=== PATIENT | male | born 1980 | race Caucasian/White ===

== ENCOUNTER 2019-08-19 09:45 | Day surgery (SDC) | payer OTHER ==
[~2019-08-19 09:45] MED LIST: ACETAMINOPHEN 325 MG TABLET PO PRN; CLINDAMYCIN 600 MG/D5W RTU 600 MG/50 ML RTUPB IV PRN; RINGERS SOLUTION,LACTATED 1,000 ML IV PRN
[2019-08-19] MEDS ORDERED: CLINDAMYCIN 600 MG/D5W RTU 600 MG/50 ML RTUPB IV ONE (10:39)
[2019-08-19] MEDS ORDERED: PROPOFOL INJ 200 MG/20 ML VIAL IV ONE (11:18)
[2019-08-19] MEDS ORDERED: MIDAZOLAM 2 MG/2 ML INJ ONE (11:18)
[2019-08-19] MEDS ORDERED: FENTANYL CITRATE INJ/PF 100 MCG/2 ML AMPUL ONE (11:18)
[2019-08-19] MEDS ORDERED: BUPIVACAINE HCL 0.25 % INJ/PF (2.5 MG/1 ML) 30 ML VIAL ONE (11:22)
[2019-08-19] MEDS ORDERED: BUPIVACAINE INJ/PF LIPOSOME/PF 266 MG/20 ML SDV ONE (11:22)
--- NOTE | 2019-08-19 12:28 | Operative Report ---
Operative Report DATE OF SURGERY: 08/19/19 PREOPERATIVE DIAGNOSIS: Umbilical hernia POSTOPERATIVE DIAGNOSIS: Same OPERATION: Primary umbilical herniorrhaphy, open SURGEON: JA SCHWAB [employer] SENIOR OFFICER: NILSA COREAS ANESTHESIA: GA TISSUE REMOVED OR ALTERED: None COMPLICATIONS: none ESTIMATED BLOOD LOSS: scant INTRAOPERATIVE FINDINGS: see below PROCEDURE: Patient was seen in preop holding area, then taken to the main operating room general anesthesia was induced. The abdominal wall was prepped and draped in sterile fashion. Surgical plan surgical timeout were conducted. The larissa wall skin above the umbilicus was anesthetized with quarter percent Marcaine. A curvilinear incision was made above the umbilicus, and the umbilical skin inferiorly was dissected off of the hernia sac. The hernia sac consisted of a very thin film finding of retroperitoneal fat. The hernia and its contents were dissected free of the subcutaneous tissue, taken down to the fascial defect. The fascial defect was approximately 1 to 1/2 cm in diameter. We felt that primary closure without mesh would be appropriate. The prolapsing retroperitoneal fat was reduced into the retroperitoneal space carefully. We now closed the fascial defect transversely with 2 [id number] 0 Ethibond sutures, securing the knots with out tension. The umbilicus was reconstructed with 2-0 and 3-0 Vicryl benzoin, Steri-Strips and bulky dressing. Patient tolerated procedure well, extubated, and taken recovery room in stable condition. The physician care team assistant, Ms. Hernadez, provided assistance with retracting tissue, instillation of local anesthesia and closure of skin incisions.
[2019-08-19] MEDS ORDERED: OXYCODONE-ACETAMINOPHEN 5-325 MG TABLET PO PRN (12:29)
--- NOTE | 2019-08-19 12:29 | Discharge Summary ---
Discharge Summary (SDC) - Discharge Final Diagnosis: umbilical hernia Date of Surgery: 08/19/19 Discharge Date: 08/19/19 Condition: Good Treatment or Instructions: [facility] [address], [place] [address] Discharge Instructions: Open Abdominal Procedures (Hernia, Bowel Surgery) 1.General Information: a. DO NOT DRIVE a car or operative machinery for 1-2 weeks or as long as taking Narcotic pain medication. b. DO NOT consume alcohol, tranquilizers, sleeping medication, or any non- prescribed medication for 24 hours unless approved by your doctor or as long as taking pain medication. c. DO NOT make important decisions or sign any important papers for the first 24 hours after surgery. d. When discharged home the same day as surgery have a responsible person with you the first night. 2.Activity Restriction: 6 weeks a. Avoid heavy lifting (> 10-15 lbs), straining abdominal muscles and sports, mowing lawn, vacuum acid tank cleaner and bending over a lot. b. Walking is important to avoid blood clots in the legs and deep breathing can prevent pneumonia. c. If it fine to go for walks, up and down steps, and ride in a car. 3.Treatment: a. You may shower 48 hours after surgery and shower then daily is fine, but you should not bathe in a tub or go swimming for 2 weeks. b. If you have paper strips (steri strips) on the skin, do not remove them as they will fall off in the coming weeks. Pat them dry after your shower. Sutures beneath the paper strips dissolve. c. Do not use oils, powders, or lotion on your incision. 4.Medications: a. You may take prescription tablets for pain if needed, one every 6 hours (_Toradol_). b. Do not take additional NSAIDs with Toradol. You may take Tyelnol as needed. c. You may resume all normal medications unless a change is specified by your doctors. 5.Diet: a. If going home the same day as surgery start with clear liquids, and if you do well then advance to normal foods low inf fat and protein. Smaller portion size may be escamilla the first night. b. When discharged after hospital stay you may resume a normal diet. 6.Notify Physician If: a. Pain is not relieved by pain medication b. Persistent nausea and vomiting c. Chills, fever (above 101) d. Persistent bleeding or swelling at the operative site e. Unable to urinate for 6-8 hours f. Increased redness, drainage, or foul smelling discharge from incision 7. Follow Up Care: a. Please call our office to schedule an appointment with your doctor for 2 weeks. In the event of any postoperative problems or questions you may call our office during business hours or the On-Call surgeon through the lamination operator at [facility]. [facility] [phone] [facility] [phone] (Ask for the surgeon guest relations receptionist) b. I understand the instructions for my postoperative care as described above and a copy has been given to me. Witness Patient/Significant Other Date Prescriptions: Ketorolac Tromethamine [Toradol 10 mg Tablet] 10 mg PO Q6HP PRN #20 tablet PRN Reason: Referrals: LARRY BECK MD [Primary Care Provider] - Discharge Diet: As Tolerated Discharge Activity: Balance Activity w/Rest, No Lifting Over 10 Pounds, No Lifting/Push/Pulling, Walk Frequently Report the Following to Your Physician Immediately: Nausea, Vomiting, Increase in Pain, Fever over 101 Degrees, Unusual Bleeding, Redness, Swelling, Warmth, Drainage-Foul Smelling
[2019-08-19] MEDS ORDERED: OXYCODONE-ACETAMINOPHEN 5-325 MG TABLET ONE (13:20)
[2019-08-19 14:29] VITALS: BP 108/62
== END 2019-08-19 14:25 | disposition home or self-care (01) ==
LOC: OROUT 09:45
PROVIDERS: ATTEND Surgery
DX: K42.9 Umbilical hernia without obstruction or gangrene (principal); K21.9 Gastro-esophageal reflux disease without esophagitis; I10 Essential (primary) hypertension; Z79.899 Other long term (current) drug therapy; Z03.818 Encounter for observation for suspected exposure to other biological agents ruled out
CPT/HCPCS: 87635; 49585; J2250; J3010; J2704; C9803; 750; C9290